=== PATIENT | female | born 1970 | race Caucasian/White ===

== ENCOUNTER 2017-11-17 14:04 | Emergency (ER) | payer BC ==
[2017-11-17] MEDS ORDERED: EPINEPHrine 1 MG/ML AMP ONE (14:28)
[2017-11-17] MEDS ORDERED: Dexamethasone 10 MG/ML VIAL ONE (14:28)
[2017-11-17] MEDS ORDERED: diphenhydrAMINE 12.5 MG/5 ML UDCUP ONE (14:37)
[2017-11-17] MEDS ORDERED: diphenhydrAMINE 50 MG/ML VIAL IVP SCH (14:45)
== END 2017-11-17 15:47 | disposition home or self-care (01) ==
LOC: ERS 14:04
DX: T78.40XA Allergy, unspecified, initial encounter (principal); Z79.899 Other long term (current) drug therapy
CPT/HCPCS: 96361; 96372; 96374; 96375; J0171; J1100; J1200

== ENCOUNTER 2018-05-04 17:01 | Day surgery (SDC) | payer BC ==
[2018-05-04 17:49] VITALS: BMI 27.4
[2018-05-04 20:35] LABS: Amnisure Test No Membranes Rupture (No Rupture)
[2018-05-04 20:36] LABS: Amnisure Internal Control QC ACCEPTABLE (ACCEPTABLE)
--- NOTE | 2018-05-04 21:00 | ULT ---
EXAM LIMITED OB ULTRASOUND 05/04/18 HISTORY: Pelvic pain. COMPARISON: None. TECHNIQUE: Sagittal and transverse imaging of the gravid uterus is performed. The uterus is identified. There is a single intrauterine gestation. position is transverse. Ant erior placenta with a posterior lobe. There do appear to be vessels overlying the internal os, worris ome for vasa previa. Cervix appears to be 3.6 cm. BIOMETRY: BPD 6.56 cm 26 weeks, 3 days Head circumference 23.58 cm 25 weeks, 4 days Abdominal circumference 22.07 cm 26 weeks, 4 days Femur length 4.72 cm 25 weeks, 5 days Average age by sonography is 26 weeks, 1 day. Estimated weight is 899 grams +/- 133 grams. Purnima mated weight percentage is 65%. Amniotic fluid index is 17.1 cm. heart tones with a rate of 162 beats per minute. SURVEY: Four chamber heart is noted. Three vessel cord is identified. Limited evaluation of spine. Urinary bl adder is normal. Normal cord insertion. Stomach is noted. Kidneys and intracranial structures are david dequately assessed. IMPRESSION: 1. Single intrauterine gestation with heart tones. Average age by sonography is 26 weeks, 1 day. 2. Cervix is closed with length of 3.6 cm. 3. There is concern for vasa previa. These findings were conveyed to Dr. Briggs by the sonograp her while the examination was performed. Code CR POS: [facility]
--- NOTE | 2018-05-07 09:15 | PRG ---
DATE OF SERVICE: 05/04/[address] Kaci Vance. CHIEF COMPLAINT: Cervical and pelvic pain and discomfort and leakage of fluid. HISTORY OF PRESENT ILLNESS: The patient is a 47-year-old, G7, P6, female with an intrauterine at 25 weeks and 4 days, who presented to labor and delivery with pelvic pain and pressure that has caused her to leave work early this afternoon. The patient reports that the pain is in part associated with movement and activity and in part feeling like she just has a lot of pressure at her cervix. The patient does have a history of cervical trauma secondary to cerclage placement and labor requiring cervical reconstructive surgery. The patient has this complicated by what she describes as complete previa with accreta. The patient denies any vaginal bleeding. She does report she has been having leakage of fluid the last couple of days to where it actually will trickle down her legs. The patient does report in our conversation that she does take bath in the morning and places vaginal progesterone twice a day and in the morning before she takes a bath. The patient reports that she saw a maternal medicine specialist last week, who has given her extremely strict precautions with regard to her activity and instructions to seek attention if she has any kind of pressure or pain, and has been given a 3-pound weight lifting limit. The patient denies any recent illness, fever, fall , headache, chest pain, or shortness of breath. She has had some nausea. Denies vomiting. Denies diarrhea or constipation. Denies any new rashes. Denies hip problems, knee problems, or muscle weakness. Denies any urinary urgency. PAST MEDICAL HISTORY: The patient reports that she is blind in her right eye. Also reports that she has high functioning autism and anxiety. Protein s deficiency PAST SURGICAL HISTORY: She has had cerclage placement. She has had a and she has had cervical reconstructive surgery due to complications of a cerclage. SOCIAL HISTORY: Denies drug, alcohol, or tobacco use. ALLERGIES: REPORTS CODEINE, LATEX, LUPRON, MORPHINE, CORN CONTAINING PRODUCTS. MEDICATIONS: 1. vitamins,. 2. Vaginal progesterone. 3. lovenox LABORATORY DATA: OB labs unavailable at the time of dictation. REVIEW OF SYSTEMS: Per HPI. PHYSICAL EXAMINATION: VITAL SIGNS: Blood pressure 121/69, heart rate of 81, saturating 99% on room air , temperature GENERAL: She appears to be in no acute distress. She is alert, oriented, cooperative, and pleasant to interact with. HEAD: Normocephalic, atraumatic. LUNGS: Clear to auscultation bilaterally. HEART: Regular rate and rhythm. ABDOMEN: Soft and gravid. Nontender to palpation. EXTREMITIES: Nontender, nonedematous. PELVIC: Vulva without masses, lesions, or erythema. Vagina is moist with a little bit of clear fluid and presence of the vaginal progesterone. Cervix is visibly closed. Cervical digital exam has been deferred given her diagnosis. heart tracing was performed for pelvic pain and pressure. Fetus is noted to have a baseline in the 140s with moderate long-term variability, reassuring for 25 weeks' gestation and no contractions visible on the monitor. DIAGNOSTIC STUDIES: Ultrasound was ordered and noted to have a cervical length of 3.6 cm and evidence concerning for a vasa previa. Fetus weighing at the 65th percentile for gestational age and an EBONIE of 17. No evidence of concealed abruption or bleeding. AmniSure test is negative. VPIII testing is all negative. ASSESSMENT AND PLAN: The patient is a 47-year-old, G7, P6 female with an intrauterine at 25 weeks that appears to be complicated by placenta previa or vasa previa. She is being followed closely by Maternal Medicine. There is no evidence at this time of any acute events requiring further attention. She is being discharged to home. Fetus has a reassuring tracing for gestational age. There is no evidence of Trichomonas, yeast infection, bacterial vaginosis, or rupture of membranes. There is concern on ultrasound that she has a vasa previa, which may or may not be known already to the other providers. I will be forwarding this dictation and information to Dr. Vance, her primary OB. Job ID: [id number] [facility]
== END 2018-05-04 21:24 | disposition home or self-care (01) ==
LOC: L&D/OP 17:01
PROVIDERS: ATTEND Student in an Organized Health Care Education/Training Program
DX: O99.89 Other specified diseases and conditions complicating pregnancy, childbirth and the puerperium (principal); N89.8 Other specified noninflammatory disorders of vagina; R10.2 Pelvic and perineal pain; O34.219 Maternal care for unspecified type scar from previous cesarean delivery; O99.342 Other mental disorders complicating pregnancy, second trimester; F84.0 Autistic disorder; H54.61 Unqualified visual loss, right eye, normal vision left eye; Z3A.25 25 weeks gestation of pregnancy; Z91.040 Latex allergy status; Z88.5 Allergy status to narcotic agent; Z91.018 Allergy to other foods; Z79.899 Other long term (current) drug therapy
CPT/HCPCS: 76815; 84112; 87480; 87510; 87660; 99285

== ENCOUNTER 2018-07-04 17:52 | Day surgery (SDC) | payer BC ==
[2018-07-04 19:12] VITALS: BMI 29.4
[2018-07-04 19:39] LABS: Bilirubin Negative (Negative); Blood, Urine Negative (Negative); Glucose, Urine (Dipstick) Negative (Negative); Leukocyte Small (Negative); Nitrite Negative (Negative); Protein, Urine (Dipstick) Trace mg/dL (Neg-Trace); Specific Gravity, Urine 1.026 (1.002-1.036); Urobilinogen 0.2 mg/dL (0.2-1.0)
[2018-07-04 19:42] LABS: Bacteria/HPF 1+ HPF (None Seen); Hyaline Casts/LPF 7-10 HYALINE CAST LPF (0-3 Hyaline); Pathc Cast-AUWi Flag 2.17 (0-2.49); RBC/HPF 0-3 HPF (0-3); WBC/HPF 0-3 HPF (0-3)
[2018-07-04 19:48] LABS: Clarity Clear (Clear)
[2018-07-04 19:50] LABS: #Eosinphils 0.1 thou/uL (0.0-0.7); #Lymphocytes 2.3 thou/uL (1.20-3.40); #Monocytes 0.7 thou/uL (0.11-0.59); #Neutrophils 4.7 thou/uL (1.40-6.50); %Basophils 0.6 % (0.0-1.0); %Eosinophils 1.7 % (0.0-10.0); %Lymphocytes 29.4 % (21.0-51.0); %Monocytes 8.7 % (0.0-10.0); %Neutrophils 59.6 % (42.0-75.0); Hemoglobin 13.2 g/dL (12.0-16.0); Mean Corpuscular HGB CONC 34.6 g/dL (32.0-36.0); Mean Corpuscular Hemoglobin 30.7 pg (27.0-31.0); Mean Corpuscular Volume 88.8 fL (78.0-98.0); Mean Platelet Volume 9.3 fL (7.4-10.4); Platelet Count 155 thou/uL (130-400); RBC Distribution Width 12.9 % (11.5-14.5); Red Blood Cell (RBC) Count 4.31 mill/uL (4.20-5.40); White Blood Cell (WBC) Count 7.8 thou/uL (4.8-10.8)
[2018-07-04 20:13] LABS: ALT (SGPT) 14 U/L (8-55); AST (SGOT) 20 U/L (5-34); Albumin 3.4 g/dL (3.5-5.0); Alkaline Phosphatase 90 U/L (40-150); Anion Gap 15 mmol/L (10-20); BUN (Urea Nitrogen) 12 mg/dL (7.0-18.7); Bilirubin, Total 0.5 mg/dL (0.2-1.2); Calc. Creatinine Clearance 125 mL/min (70-130); Calcium 9.9 mg/dL (7.8-10.44); Carbon Dioxide 23 mmol/L (22-29); Chloride 102 mmol/L (98-107); Estimated GFR-MDRD 89; Globulin 2.4 g/dL (2.4-3.5); Glucose 107 mg/dL (70-105); Protein, Total 5.8 g/dL (6.0-8.3); Sodium 136 mmol/L (136-145)
--- NOTE | 2018-07-05 05:48 | SS ---
DATE OF ADMISSION: 07/04/2018 DATE OF DISCHARGE: 07/04/2018 REGULAR PHYSICIAN: Kaci Vance MD EVALUATING PHYSICIAN: Ron Gregory MD CHIEF COMPLAINT: Reported elevated blood pressures at home. HISTORY OF PRESENT ILLNESS: Ms. Kay is a 47-year-old , G10, P6, with an estimated date of confinement of 08/14/2018, who presents complaining of elevated blood pressures at home over the last 3 days. She does state that the systolics were up to 130s with diastolics in the 90s. She denies visual changes, right upper quadrant pain, nausea, or vomiting. She also denies vaginal bleeding or ruptured membranes. Her care has been with Dr. Vance, and she has been followed very closely secondary to the fact that this is an IVF . PAST OBSTETRICAL HISTORY: Includes five vaginal deliveries, one section, and then two following losses. PAST MEDICAL HISTORY: Celiac disease. PAST SURGICAL HISTORY: x1, repair of cervical laceration, and strabismus surgery. ALLERGIES: INCLUDE MORPHINE, CODEINE, LUPRON, SESAME OIL, GLUTEN, CORN, AVOCADOS, MANGOES, AND PINEAPPLE. CURRENT MEDICATIONS: vitamins. SOCIAL HISTORY: Denies tobacco or alcohol use. FAMILY HISTORY: Unremarkable. REVIEW OF SYSTEMS: She denies nausea, vomiting, fever, chills, ruptured membranes, or decreased movement. PHYSICAL EXAMINATION: VITAL SIGNS: Serial blood pressures are 128/79, 130/71, 134/80, and 128/74. GENERAL: She is pleasant and in no distress. ABDOMEN: Soft, nontender, and gravid. PELVIC: Deferred. heart rate tracing is stable with spontaneous accelerations. No significant uterine activity is seen. LABORATORY DATA: White count 7.8, hemoglobin 13.2, hematocrit 38.2, and platelet count 155,000. Chemistries show a creatinine of 0.70, a total bilirubin of 0.5, an AST and an ALT of 20 and 14 respectively. Urinalysis shows only trace protein but moderate ketones. ASSESSMENT: 1. 34 and 2/7th's week intrauterine . 2. No evidence of preeclampsia. PLAN: The patient will be dismissed to home. The patient was told to hydrate herself well and continue to watch her blood pressures. She states she does have an appointment with Dr. Vance on Monday. Dr. Vance has been notified. Job ID: [id number]
== END 2018-07-04 20:45 | disposition home or self-care (01) ==
LOC: L&D/OP 17:52
PROVIDERS: ATTEND Student in an Organized Health Care Education/Training Program
DX: O99.89 Other specified diseases and conditions complicating pregnancy, childbirth and the puerperium (principal); R03.0 Elevated blood-pressure reading, without diagnosis of hypertension; Z3A.34 34 weeks gestation of pregnancy; Z88.5 Allergy status to narcotic agent; Z88.8 Allergy status to other drugs, medicaments and biological substances; Z91.018 Allergy to other foods
CPT/HCPCS: 36415; 80053; 81003; 81015; 85025; 99283

== ENCOUNTER 2018-07-08 09:09 | Day surgery (SDC) | payer BC ==
[2018-07-08 09:50] VITALS: BP 119/69; TEMP 98.6
[2018-07-08 09:57] VITALS: BMI 29.1
[2018-07-08] MEDS ORDERED: HYDROcodone/Acetaminophen 5/325 mg Tablet PO PRN (10:41)
[2018-07-08] MEDS ORDERED: Benzocaine-Menthol 82.5 ML CAN TOP PRN (10:43)
[2018-07-08] MEDS ORDERED: Lidocaine 1% (PF) 30 ML VIAL ONE (10:55)
[2018-07-08] MEDS ORDERED: Silver Nitrate Application 1 EACH ONE (11:56)
[2018-07-08] MEDS ORDERED: Lidocaine 1% (PF) 30 ML VIAL SC SCH (12:45)
[2018-07-08] MEDS ORDERED: Labetalol 100 MG TAB PO SCH (13:00)
[2018-07-08] MEDS ORDERED: Hydrocortisone/Pramoxine (Proctofoam HC) 10 GM BOX PR SCH (15:00)
--- NOTE | 2018-07-09 10:04 | PRG ---
DATE OF SERVICE: 07/08/2018 PRIMARY OB: Dr. Kaci Vance. CHIEF COMPLAINT: Painful hemorrhoids. HISTORY OF PRESENT ILLNESS: The patient is a 47-year-old female with an intrauterine at 34 weeks and 5 days, presenting with a day or two history of very painful hemorrhoids. The patient reports that she was seen recently by Dr. Vance and had one of her hemorrhoids lanced and drained. Since then, she has had a couple of others that have really grown and is causing a lot of pain. The patient reports that she has been using topical lidocaine without success now and has been using Witch Diana and Preparation H without improvement. She was given a prescription of hydrocodone for pain control, however, the pharmacy would not fill it given her allergies to codeine and morphine and had recommended a trial in the hospital. PAST MEDICAL HISTORY: Celiac disease. PAST SURGICAL HISTORY: One prior , repair of her cervical laceration, and a strabismus surgery. ALLERGIES: MORPHINE, CODEINE, LUPRON, SESAME OIL, GLUTEN, CORN, AVOCADOS, MANGOES, AND PINEAPPLE. MEDICATIONS: vitamins. SOCIAL HISTORY: Denies drug, alcohol, or tobacco use. OBSTETRIC HISTORY: She has had 5 vaginal deliveries, 1 section. This is a result of IVF. REVIEW OF SYSTEMS: Per HPI. PHYSICAL EXAMINATION: VITAL SIGNS: Blood pressure 119/69, heart rate of 80, respiratory rate of 18, temperature 98.6. GENERAL: She appears to be in quite a bit of discomfort. Unable to lay supine as the patient is on her side. She is alert and oriented, cooperative, and pleasant to interact with. HEAD: Normocephalic and atraumatic. LUNGS: Clear to auscultation bilaterally. HEART: Regular rate and rhythm. ABDOMEN: Gravid and soft. She does have a large 2 to 3 cm hemorrhoid on the patient's left side of her anus that is very exquisitely tender to light touch. After discussing options with the patient, she does desire to have the hemorrhoid lanced and drained. Approximately a total of 3 to 6 mL of 1% lidocaine was placed into the skin for anesthetic purposes. The hemorrhoid was initially drained with a needle and significant serosanguineous fluid was removed and the size of the hemorrhoid was significantly reduced. The patient was given hydrocodone for a trial and Dermoplast and ice pack was placed on her hemorrhoid. The patient reports she was feeling much better with the pain level down from 8 to 2. However, given the risk of this hemorrhoid returning, the patient did ask for her the hemorrhoid to be lanced. The area was tested and reinjected, and with a #11 blade, was cut open with approximately 2.5 cm incision into the cavity of the hemorrhoid. Bleeding was controlled with Nitrazine sticks. Once this was completed, the patient reported much improvement on her pain and overall condition. The patient was comfortable going home. ASSESSMENT AND PLAN: The patient is a 47-year-old female with recurrent hemorrhoids, who now has had second one incised. She has been given Anusol steroid suppositories to be used three times a day for the next 2 weeks in an effort to reduce the chances of future worsening and the patient has been given a note for the pharmacist stating that she can have the hydrocodone filled with little concern for a bad reaction as she has taken it here in the hospital without any reaction. The patient has been counseled to follow up with her primary OB as scheduled. Job ID: [id number]
== END 2018-07-08 12:48 | disposition home or self-care (01) ==
LOC: L&D/OP 09:09
PROVIDERS: ATTEND Student in an Organized Health Care Education/Training Program
PROC: 069Y0ZZ Drainage of Lower Vein, Open Approach (ICD-10-PCS; principal; 2018-07-08)
DX: O99.613 Diseases of the digestive system complicating pregnancy, third trimester (principal); K64.9 Unspecified hemorrhoids; K90.0 Celiac disease; Z3A.34 34 weeks gestation of pregnancy; Z88.5 Allergy status to narcotic agent; Z88.8 Allergy status to other drugs, medicaments and biological substances; Z91.018 Allergy to other foods
CPT/HCPCS: 96372; 99282; J2001

== ENCOUNTER 2018-07-24 00:15 | Inpatient (IN) | payer BC ==
[2018-07-24] MEDS ORDERED: Promethazine HCl 25 MG/ML VIAL IM PRN ×3 (12:51→16:41)
[2018-07-24] MEDS ORDERED: Ondansetron PF 4 MG/2 ML Vial IVP PRN ×3 (12:51→16:41)
[2018-07-24] MEDS ORDERED: Lidocaine 5% Patch TD SCH (13:00)
[2018-07-24] MEDS ORDERED: Bicitra 30 ML UDCUP PO SCH (13:00)
[2018-07-24] MEDS ORDERED: CEFAZOLIN 2 GM in Premix Bag 1 BAG IVPB SCH (13:00)
[2018-07-24 13:08] VITALS: BMI 29.4
[2018-07-24] MEDS: Lactated Ringer's 1,000 ML IV SCH ×2 (14:15→15:15)
--- NOTE | 2018-07-24 14:51 | PDOC.LDHP ---
Labor and Delivery H&P Chief complaint: scheduled section HPI: 47yo at 37w0d by IVF for repeat CS. Pt has complicated hx of infertility, cervical dilation, hx of cerclage s/p cervix reconstruction. This pt has had initially placenta previa with succenturiate lobe that resolved, now has polyhydramnios of unknown etiology with reassuring testing. Current gestational age (weeks): 37 Due date: 08/14/18 Dating criteria: last menstrual period Grav: 9 Para: 6 OB History Details: hx of premature cervical dilation, s/p cerclage then cervical reconstruction following hx of mild shoulder dystocia hx of CS x 1 Hx of infertility and recurrent loss Current complications: other (placenta previa, resolved. polyhydramnios) Abnormal US findings: No Past Medical History: questionable protein s deficiency Current medications: pre-tomas vitamins Previous surgical history: low tranverse CS, other (cerclage cervical reconstruction eye surgery) Allergies/Adverse Reactions: Allergies Allergy/AdvReac Type Severity Reaction Status Date / Time codeine Allergy Anaphylaxis Verified 07/08/18 09:52 corn Allergy Verified 07/08/18 09:52 gluten Allergy Verified 07/08/18 09:52 latex Allergy Rash Verified 07/08/18 09:52 leuprolide [From Lupron] Allergy Verified 07/04/18 19:13 Milk Containing Products Allergy Verified 07/08/18 09:53 morphine Allergy Anaphylaxis Verified 07/08/18 09:52 sesame Allergy Uncoded 07/08/18 09:54 tropical fruits Allergy Uncoded 07/08/18 09:53 Social history: none - Physical Exam Vital signs reviewed and normal: yes General: NAD Heart: RRR Lungs: CTAB Abdomen: gravid Extremeties: no edema FHT: category 1 [place] contractions every: none - OB Labs Blood type: O RH: positive Antibody Screen: negative HIV: negative RPR: negative HEPSAg: negative 1 hour GCT: negative (accuchecks negative, pt declined glucola) GBS: positive Urine drug screen: negative - Assessment L&D Assessment: scheduled repeat section - Plan Plan: admit to L&D, to OR for section, informed consent obtained, anesthesia consult for pain management
[2018-07-24 15:04] LABS: Hemoglobin 13.5 g/dL (12.0-16.0); Mean Corpuscular HGB CONC 34.2 g/dL (32.0-36.0); Mean Corpuscular Hemoglobin 30.4 pg (27.0-31.0); Mean Corpuscular Volume 88.9 fL (78.0-98.0); Mean Platelet Volume 9.4 fL (7.4-10.4); Platelet Count 170 thou/uL (130-400); RBC Distribution Width 12.7 % (11.5-14.5); Red Blood Cell (RBC) Count 4.45 mill/uL (4.20-5.40); White Blood Cell (WBC) Count 7.1 thou/uL (4.8-10.8)
[2018-07-24] MEDS ORDERED: diphenhydrAMINE 25 MG CAP PO PRN ×2 (15:07→16:41)
[2018-07-24] MEDS ORDERED: Bisacodyl 10 MG SUPP PR PRN (15:07)
[2018-07-24] MEDS ORDERED: traMADol HCl 50 MG TAB PO PRN ×2 (15:07)
[2018-07-24] MEDS ORDERED: Adacel (T-DAP) 0.5 ML SYRINGE IM ONE (15:07)
[2018-07-24] MEDS ORDERED: Simethicone Chewable 80 MG TAB PO PRN (15:07)
[2018-07-24] MEDS ORDERED: Lanolin Ointment 7 GM TUBE TOP PRN (15:07)
[2018-07-24] MEDS ORDERED: Zolpidem Tartrate 5 MG TAB PO PRN ×2 (15:07→16:41)
[2018-07-24] MEDS ORDERED: Fentanyl 100 MCG/2 ML VIAL ONE (15:11)
[2018-07-24] MEDS ORDERED: Oxytocin 10 UNITS/ML VIAL ONE (15:12)
[2018-07-24] MEDS ORDERED: MORPHINE 5 MG/10 ML PF VIAL ONE (15:12)
[2018-07-24] MEDS ORDERED: Metoclopramide HCl 10 MG/2 ML VIAL ONE (15:12)
[2018-07-24] MEDS ORDERED: Ropivacaine HCl/PF 750 ML in Premix Bag 1 BAG NERVE BLCK SCH ×2 (15:15→16:15)
[2018-07-24] MEDS ORDERED: Phenylephrine HCL 10 MG/ML VIAL ONE ×2 (15:41→15:42)
[2018-07-24 15:47] LABS: Syphilis Antibody Nonreactive (Nonreactive); Syphilis Antibody Index 0.03 S/CO (<1.00 Non-Reactive)
[2018-07-24 15:48] LABS: Hep B Surf Ag Non-Reactive S/CO (NonReactive)
[2018-07-24] MEDS ORDERED: Ondansetron HCl/PF 4 MG/2 ML Vial IVP PRN (16:09)
[2018-07-24] MEDS ORDERED: Meperidine HCl/PF 25 MG/ML VIAL SLOW IVP PRN (16:09)
[2018-07-24] MEDS ORDERED: Ketorolac Tromethamine 30 MG/ML VIAL IVP SCH (16:15)
[2018-07-24] MEDS ORDERED: Lidocaine 1% (PF) 30 ML VIAL ONE (16:27)
[2018-07-24] MEDS ORDERED: diphenhydrAMINE 50 MG/ML VIAL IVP PRN (16:41)
[2018-07-24] MEDS ORDERED: Naloxone HCl 0.4 mg/ml Vial IV PRN (16:41)
[2018-07-24] MEDS ORDERED: diphenhydrAMINE 50 MG/ML VIAL IM PRN (16:41)
[2018-07-24] MEDS ORDERED: Communication Order-Pharmacy FS SCH (16:45)
--- NOTE | 2018-07-24 16:45 | PDOC.OPDEL ---
OB Operative/Delivery Note Delivery Dr/Surgeon: Pinky Assist: Sukhjinder Pre-Delivery Diagnosis: scheduled section Procedure/Post Delivery Dx: repeat low transverse CS Weeks gestation: 37 Anesthesia: spinal - Findings A Sex: male - 1 min: 8 - 5 min: 9 - Additional Findings/Plan Placenta delivered: spontaneous findings: low transverse hysterotomy without extension, normal uterus, normal tubes, normal ovaries Estimated blood loss: 800 Post delivery plan: routine recovery
[2018-07-24] MEDS ORDERED: Lidocaine 4% Topical Sol 50 ML BOT TOP PRN (17:00)
[2018-07-24] MEDS ORDERED: NS / Oxytocin 40 units/1000ml 1,000 ML IV SCH (17:15)
[2018-07-24] MEDS: fentaNYL Citrate/PF 2,000 MCG in Sodium Chloride 0.9% 60 ML IV PRN (17:46)
[2018-07-24] MEDS: Ferrous Sulfate 325 MG TAB PO SCH (21:12)
--- NOTE | 2018-07-24 23:28 | OP ---
DATE OF PROCEDURE: 07/24/2018 PREOPERATIVE DIAGNOSES: 1. Intrauterine at 37 weeks 0 days. 2. Prior x1, declines trial of labor. 3. Polyhydramnios. 4. Advanced maternal age. 5. IVF . POSTOPERATIVE DIAGNOSES: 1. Intrauterine at 37 weeks 0 days. 2. Prior x1, declines trial of labor. 3. Polyhydramnios. 4. Advanced maternal age. 5. IVF . PROCEDURE PERFORMED: Repeat low-transverse section via Pfannenstiel skin incision and On-Q pump placement. ANESTHESIA: Spinal. MARKETING COMMUNICATIONS LEADER SURGEON: Fozia Slaughter. ESTIMATED BLOOD LOSS: 800 mL. COMPLICATIONS: None. DRAINS: Skinner catheter. PATHOLOGY: None. FINDINGS: Male infant, cephalic presentation, clear copious amniotic fluid. Apgars were 8 and 9. Weight is pending. Hysterotomy without extension. Normal uterus, tubes, and ovaries bilaterally. DESCRIPTION OF PROCEDURE: The patient was taken to the operating room where spinal anesthesia was obtained without difficulty. The patient was prepped and draped in a sterile fashion in a dorsal supine position with leftward tilt. After ensuring adequacy of anesthesia, a Pfannenstiel skin incision was made and carried down to the underlying subcutaneous tissue with the knife. The fascia was incised with a knife and extended with the Glover scissors. The superior aspect of the fascia was tented with 2 Kochers and dissected off the rectus with the Glover scissors. The inferior aspect of the fascia was tented with 2 Kochers and dissected off the rectus with the Glover down to the pubic symphysis. The rectus was divided in the midline with Glover scissors and the peritoneum was bluntly entered into and manually retracted. The Kannan O retractor was placed and Metzenbaums were used to create a bladder flap. The lower uterine segment was incised in a transverse fashion and extended with a Rodriguez maneuver. The 's head was brought to the hysterotomy and delivered atraumatically with fundal pressure and there was nuchal cord x1. Delayed cord clamping was performed and the infant was vigorous. The infant's cord was clamped and handed to awaiting Augustin team. This placenta was allowed to spontaneously deliver. The uterus was then cleared of all clots and debris and the hysterotomy was repaired with a #1 Monocryl in a running locking fashion with excellent hemostasis noted. Irrigation was performed of the pelvis and suctioned. Hemostasis was noted once again. The rectus muscles were examined and noted to be hemostatic. The fascia was grasped with the Barbara clamps and the peritoneum with 3 Kellys and the peritoneum was closed with a 2-0 chromic in a running fashion. The On-Q catheters with introducers were then inserted just above this skin incision bilaterally into the rectus muscle to reach the peritoneum. With these still in place, the fascia was then closed with 0 PDS x2 sutures with excellent reapproximation. The subcutaneous tissue was irrigated and cauterized of any bleeders and reapproximated with a 2-0 plain gut in a running fashion. The introducer needle was removed out of the catheter and the catheters were primed with 1% lidocaine, 10 mL on each side. The skin was then closed with a 4-0 Monocryl in subcuticular fashion. Dermabond was applied. The patient tolerated procedure well. Sponge, lap, needle counts were correct x2. The patient was taken to recovery room in stable condition. The patient received Ancef 2 g prior to the procedure. Job ID: [id number]
[2018-07-25] MEDS: Docusate Calcium (SURFAK) 240 MG CAP PO SCH ×3 (00:28→21:17)
[2018-07-25] MEDS: Ibuprofen 800 MG TAB PO SCH ×2 (00:29→07:39)
[2018-07-25] MEDS: Lactated Ringer's 1,000 ML IV SCH (00:49)
[2018-07-25] MEDS ORDERED: Lidocaine Patch Removal TOP SCH (01:00)
[2018-07-25] MEDS: Ketorolac Tromethamine 30 MG/ML VIAL IVP SCH ×3 (08:28→21:09)
[2018-07-25] MEDS ORDERED: Prenatal Vitamin 1 TAB PO SCH (09:00)
[2018-07-25] MEDS: Acetaminophen 1,000 MG in Premix Bag 1 BAG IVPB SCH ×3 (09:28→21:11)
--- NOTE | 2018-07-25 10:04 | PDOC.PP ---
Post Progress Note Post Day #: 1 Subjective: pt c/o severe pain in lower abdomen over night off and on. There was a delay in getting fentanyl CHICKEN CLEANER going. Onq was turned up to 5cc in each lumen. Has not had any additional pain medicine. Tolerating clears. No flatus PO intake tolerated: yes Flatus: no Ambulation: no Vital Signs (12 hours) Temp Pulse Resp BP Pulse Ox 07/25/18 07:50 97.6 F 81 16 132/73 93 L 07/25/18 04:55 98.7 F 75 20 116/59 L 07/25/18 00:35 98.1 F 79 20 149/64 H Weight Weight 177 lb - Physical Examination General: NAD Cardiovascular: RRR Respiratory: clear to auscultation bilaterally, non-labored breathing Abdominal: + bowel sounds, lochia (normal) Deviation from normal: distended and acutely tender in lower abdomen Fundus firm & at: umb Skin: CS incision dry & intact Neurological: no gross focal deficits Psychiatric: normal affect Result Diagrams: 07/24/18 14:42 Additional Labs: Post Labs Blood Type O POSITIVE 07/24/18 15:14 Hep Bs Antigen Non-Reactive S/CO (NonReactive) 07/24/18 14:42 - Assessment/Plan POD1 s/p RCS VSSAF Pain- do not feel that pain is caused by underlying issue, feel that pt has not had adequate pain medication to control her pain and has a low pain threshold. Start scheduled toradol and iv tylenol. CHICKEN CLEANER dose increased as well as interval lowered. Serial exams to monitor for improvement. Tolerating po, advance diet as tolerated OOB once pain under control DC tirado CBC pending from this am Cont postop care.
[2018-07-25] MEDS: Prenatal Vitamin 1 TAB PO SCH (10:10)
[2018-07-25] MEDS: Ferrous Sulfate 325 MG TAB PO SCH ×2 (10:10→23:10)
[2018-07-25 10:30] LABS: Hemoglobin 12.2 g/dL (12.0-16.0); Mean Corpuscular HGB CONC 34.1 g/dL (32.0-36.0); Mean Corpuscular Hemoglobin 30.7 pg (27.0-31.0); Mean Corpuscular Volume 90.2 fL (78.0-98.0); Mean Platelet Volume 8.9 fL (7.4-10.4); Platelet Count 141 thou/uL (130-400); RBC Distribution Width 12.8 % (11.5-14.5); Red Blood Cell (RBC) Count 3.96 mill/uL (4.20-5.40); White Blood Cell (WBC) Count 8.1 thou/uL (4.8-10.8)
[2018-07-25] MEDS: fentaNYL Citrate/PF 2,000 MCG in Sodium Chloride 0.9% 60 ML IV PRN (20:05)
[2018-07-26] MEDS: Acetaminophen 1,000 MG in Premix Bag 1 BAG IVPB SCH (03:07)
[2018-07-26] MEDS: Ketorolac Tromethamine 30 MG/ML VIAL IVP SCH (03:08)
[2018-07-26] MEDS ORDERED: traMADol HCl 50 MG TAB PO PRN (08:32)
--- NOTE | 2018-07-26 08:32 | PDOC.PP ---
Post Progress Note Post Day #: 2 PO intake tolerated: yes Flatus: yes Ambulation: yes Vital Signs (12 hours) Temp Pulse Resp BP Pulse Ox 07/26/18 08:25 98.7 F 87 20 129/74 97 07/26/18 03:10 98.5 F 77 18 106/59 L 07/26/18 00:25 98.7 F 74 18 96/54 L Weight Weight 177 lb - Physical Examination General: NAD Cardiovascular: RRR Respiratory: non-labored breathing Abdominal: no distention, appropriately TTP Fundus firm & at: umb-2 Skin: CS incision dry & intact Neurological: no gross focal deficits Psychiatric: normal affect Result Diagrams: 07/25/18 10:21 Additional Labs: Post Labs Blood Type O POSITIVE 07/24/18 15:14 Hep Bs Antigen Non-Reactive S/CO (NonReactive) 07/24/18 14:42 - Assessment/Plan POD2 s/p RCS VSSAF Hgb 12 postop, no sx anemia Meeting postop milestones, pain controlled, ambulating. DC ROOM SERVICE MANAGER and IV meds start po ibuprofen and tramadol. Cont postop care, home tomorrow
[2018-07-26] MEDS: Docusate Calcium (SURFAK) 240 MG CAP PO SCH (09:15)
[2018-07-26] MEDS: Ibuprofen 800 MG TAB PO SCH ×2 (09:22→17:09)
[2018-07-26] MEDS: Prenatal Vitamin 1 TAB PO SCH (09:24)
[2018-07-26] MEDS: Ferrous Sulfate 325 MG TAB PO SCH (09:24)
[2018-07-26] MEDS: traMADol HCl 50 MG TAB PO PRN ×2 (10:39→16:13)
[2018-07-26] MEDS ORDERED: HYDROcodone/Acetaminophen 5/325 mg Tablet PO PRN ×2 (18:57)
[2018-07-26] MEDS ORDERED: HYDROcodone/Acetaminophen 7.5/325 mg Tablet PO PRN (19:22)
[2018-07-26] MEDS: HYDROcodone/Acetaminophen 7.5/325 mg Tablet PO PRN (20:15)
[2018-07-27] MEDS: HYDROcodone/Acetaminophen 7.5/325 mg Tablet PO PRN ×4 (00:01→14:06)
[2018-07-27] MEDS: Ibuprofen 800 MG TAB PO SCH ×4 (00:02→16:06)
[2018-07-27] MEDS: Ferrous Sulfate 325 MG TAB PO SCH ×2 (00:02→08:03)
[2018-07-27] MEDS: Docusate Calcium (SURFAK) 240 MG CAP PO SCH ×2 (00:02→07:58)
[2018-07-27] MEDS: Prenatal Vitamin 1 TAB PO SCH (08:03)
[2018-07-27 08:05] VITALS: BP 105/60; TEMP 98.3
--- NOTE | 2018-07-27 08:59 | PDOC.PP ---
Post Progress Note Post Day #: 3 PO intake tolerated: yes Flatus: yes Ambulation: yes Vital Signs (12 hours) Temp Pulse Resp BP Pulse Ox 07/27/18 08:05 98.3 F 74 20 105/60 97 07/27/18 00:35 98.1 F 83 17 122/74 Weight Weight 177 lb Result Diagrams: 07/25/18 10:21 Additional Labs: Post Labs Blood Type O POSITIVE 07/24/18 15:14 Hep Bs Antigen Non-Reactive S/CO (NonReactive) 07/24/18 14:42
[2018-07-27] MEDS ORDERED: Ropivacaine 0.2% 550 ML 750 ML NERVE BLCK SCH (13:15)
== END 2018-07-27 16:35 | disposition home or self-care (01) | DRG 788 ==
LOC: L&D 11:42 → 3SW 20:27
PROVIDERS: ADMIT Student in an Organized Health Care Education/Training Program; ATTEND Student in an Organized Health Care Education/Training Program
PROC: 10D00Z1 Extraction of Products of Conception, Low, Open Approach (ICD-10-PCS; principal; 2018-07-24)
DX: O40.3XX0 Polyhydramnios, third trimester, not applicable or unspecified (principal); O99.824 Streptococcus B carrier state complicating childbirth; O34.211 Maternal care for low transverse scar from previous cesarean delivery; Z3A.37 37 weeks gestation of pregnancy; Z37.0 Single live birth
CPT/HCPCS: 36415; 51702; 85027; 86780; 86850; 86900; 86901; 87340; 90715; A4306; J0131; J0690; J1885; J2001; J2270; J2370; J2590; J2765; J2795; J3010; J3490

== ENCOUNTER 2018-08-23 14:05 | Outpatient (CLI) | payer BC ==
--- NOTE | 2018-08-23 16:36 | ULT ---
LEFT BREAST ULTRASOUND: 08/23/18 HISTORY: Patient is one month . Patient having pain and firmness in her left breast. Patient is on antibiotics for mastitis. COMPARISON: None. TECHNIQUE: Targeted sonographic images of the left breast is performed at the 11 o'clock position. Static image s are reviews. After reading static images, real time imaging was performed in the presence of the ra diologist. FINDINGS: There is evidence of complex fluid tracking along multiple lobules of breast tissue compatible with e brad-reactive change from mastitis. A well-formed abscess is not appreciated at this time. IMPRESSION: Inflammatory change in the left breast compatible with mastitis. Patient is currently on a ten day co urse of antibiotics. If findings still persist after antibiotics are completed, repeat ultrasound is recommended. POS: [facility]
== END 2018-08-23 14:06 | disposition home or self-care (01) ==
LOC: BICULT 14:05
PROVIDERS: ATTEND Physician Assistant
DX: N63.20 Unspecified lump in the left breast, unspecified quadrant (principal); N61.0 Mastitis without abscess

== ENCOUNTER 2019-01-22 12:45 | Outpatient (CLI) | payer BC ==
--- NOTE | 2019-02-19 13:15 | MMO ---
Bilateral MAMMO Bilat Screen [facility]. CLINICAL HISTORY: Patient is 48 years old and is seen for screening. The patient has no family history of breast cancer. The patient has no personal history of cancer. The patient has a history of bilateral Cyst Aspiration - multiple. VIEWS: The views performed were: bilateral craniocaudal with tomosynthesis and bilateral mediolateral oblique with tomosynthesis. FILMS COMPARED: The present examination has been compared to prior imaging studies performed at [facility] on 09/18/2014, 09/22/2014 and 08/23/2018. This study has been interpreted with the assistance of computer-aided detection. MAMMOGRAM FINDINGS: The breasts are heterogeneously dense, which could obscure a lesion on mammography. There are no suspicious masses, suspicious calcifications, or new areas of architectural distortion. IMPRESSION: THERE IS NO MAMMOGRAPHIC EVIDENCE OF MALIGNANCY. A ROUTINE FOLLOW-UP MAMMOGRAM IN 1 YEAR IS RECOMMENDED. THE RESULTS OF THIS EXAM WERE SENT TO THE PATIENT. ACR BI-RADS Category 1 - Negative MAMMOGRAPHY NOTE: 1. A negative mammogram report should not delay a biopsy if a dominant of clinically suspicious mass is present. 2. Approximately 10% to 15% of breast cancers are not detected by mammography. 3. Adenosis and dense breasts may obscure an underlying neoplasm. Reported by: KENAN GARCIA MD Electonically Signed: [id number]
== END 2019-01-22 12:46 | disposition home or self-care (01) ==
LOC: BICMAMMO 12:45
PROVIDERS: ATTEND Student in an Organized Health Care Education/Training Program
DX: Z12.31 Encounter for screening mammogram for malignant neoplasm of breast (principal)
CPT/HCPCS: 77063; 77067

== ENCOUNTER 2020-01-19 10:14 | Emergency (ER) | payer BC ==
[2020-01-19 11:25] LABS: #Eosinphils 0.1 thou/uL (0.0-0.7); #Lymphocytes 1.9 thou/uL (1.20-3.40); #Monocytes 0.5 thou/uL (0.11-0.59); #Neutrophils 3.3 thou/uL (1.40-6.50); %Basophils 0.3 % (0.0-1.0); %Eosinophils 1.8 % (0.0-10.0); %Monocytes 8.2 % (0.0-10.0); %Neutrophils 56.8 % (42.0-75.0); Hemoglobin 12.1 g/dL (12.0-16.0); Mean Corpuscular HGB CONC 33.6 g/dL (32.0-36.0); Mean Corpuscular Volume 89.2 fL (78.0-98.0); Mean Platelet Volume 8.8 fL (7.4-10.4); Platelet Count 234 thou/uL (130-400); Red Blood Cell (RBC) Count 4.03 mill/uL (4.20-5.40); White Blood Cell (WBC) Count 5.7 thou/uL (4.8-10.8)
[2020-01-19 11:45] LABS: ALT (SGPT) 10 U/L (8-55); AST (SGOT) 11 U/L (5-34); Albumin 3.9 g/dL (3.5-5.0); Alkaline Phosphatase 61 U/L (40-110); Anion Gap 13 mmol/L (10-20); BUN (Urea Nitrogen) 10 mg/dL (7.0-18.7); Bilirubin, Total 0.4 mg/dL (0.2-1.2); Calc. Creatinine Clearance 0 mL/min (70-130); Carbon Dioxide 30 mmol/L (22-29); Chloride 103 mmol/L (98-107); Globulin 2.3 g/dL (2.4-3.5); Glucose 83 mg/dL (70-105); Lipase 24 U/L (8-78); Potassium 4.7 mmol/L (3.5-5.1); Protein, Total 6.2 g/dL (6.0-8.3); Sodium 141 mmol/L (136-145)
[2020-01-19] MEDS ORDERED: Iopamidol-370 76% 500 ML 1 ML ONE (11:46)
[2020-01-19 12:01] LABS: Bilirubin Negative (Negative); Blood, Urine Negative (Negative); Clarity Turbid (Clear); Glucose, Urine (Dipstick) Normal (Negative); Ketone, Urine Negative (Negative); Leukocyte Negative Leu/uL (Negative); Nitrite Negative (Negative); Protein, Urine (Dipstick) 20 mg/dL (Neg-Trace); Specific Gravity, Urine 1.021 (1.002-1.036); Urobilinogen Normal mg/dL (Less than 2)
[2020-01-19 13:53] LABS: Pregnancy Test - Urine (BHCG) Negative (Negative); Pregu Control Background? CLEAR/WHITE (CLR/WHITE); Pregu Control Bar Appear? YES (CONTROL BAR); Specific Gravity 1.021 (1.002-1.036)
--- NOTE | 2020-01-19 16:12 | CT ---
EXAM: CT ABDOMEN AND PELVIS HISTORY: Abdominal pain. COMPARISON: None. Procedure: Multiple contiguous axial images were obtained and a CT of the abdomen and pelvis with IV contrast. C oronal reformats were performed. FINDINGS: Lower Chest: within normal limits. Vessels: Normal caliber aorta. No periaortic fat stranding. Heart: Normal heart size. No significant pericardial effusion Abdomen: Portal vein:Patent Gallbladder: No evidence of cholecystitis or cholelithiasis Liver: within normal limits. Pancreas: within normal limits. Spleen: within normal limits. Adrenals: within normal limits. Kidneys: Symmetric enhancement. No obstructive uropathy. Peritoneum: There is no evidence of free air. There is mild stranding of the abdominal mesentery, non specific. There is a small amount of fluid in the left paracolic gutter. Bowel: Limited evaluation due to the lack of oral contrast administration. No evidence of bowel obstr uction. Ileocecal junction is unremarkable. Normal caliber appendix. Scattered fecal material in a nondistended, nondilated colon. Diverticulosis. There is bowel wall thickening and pericolonic fat st randing involving the mid descending colon, compatible with diverticulitis. No evidence of abscess or perforation. Mesentery and Retroperitoneum: No enlarged mesenteric or retroperitoneal lymph nodes. Abdominal Wall: Small umbilical hernia containing mesenteric fat Pelvis: Reproductive Organs: Uterus and left adnexa are unremarkable. Hypodensity in the right adnexa measure s 2.4 x 2.9 cm compatible with a complex ovarian cyst. Nonemergent [employer] consultation. Pelvis: No mass, lymphadenopathy, free air or free fluid. Bladder: within normal limits. Bones: No lytic or blastic lesions within the osseous structures IMPRESSION: 1. Sigmoid colon diverticulitis, without evidence of abscess or perforation. 2. Right adnexal hypodensity presumed to be of ovarian origin. Nonemergent [employer] consultation.
== END 2020-01-19 16:55 | disposition home or self-care (01) ==
LOC: ERS 10:14
DX: K57.92 Diverticulitis of intestine, part unspecified, without perforation or abscess without bleeding (principal); K50.90 Crohn's disease, unspecified, without complications; Z79.899 Other long term (current) drug therapy
CPT/HCPCS: 36415; 74177; 80053; 81003; 81025; 83690; 85025; Q9967